=== PATIENT | female | born 1970 | race Caucasian/White ===

== ENCOUNTER 2020-06-14 10:16 | Outpatient (CLI) | payer OTHER ==
--- NOTE | 2020-06-14 10:38 | RAD ---
Left hand 2 views: 06/14/2020 COMPARISON: None HISTORY: Disability examination FINDINGS: There is an old fracture status post open reduction and internal fixation involving the dis chris left radius. There is radiocarpal joint space narrowing. No acute fracture or evidence of dislocation is seen. IMPRESSION: No acute findings.
--- NOTE | 2020-06-14 10:39 | RAD ---
2 views of the left hip: 06/14/2020 COMPARISON: None HISTORY: Disability exam FINDINGS: There is a prior fracture involving the intertrochanteric aspect of the proximal left femur treated with femoral neck screw, intramedullary sindhu, and distal interlocking screw. There is a remote medially displaced 2.4 cm fracture fragment associated with the lesser trochanter. There is mi ld superior joint space narrowing and mild lateral acetabular osteophyte formation. No acute osseous abnormality. IMPRESSION: Chronic findings as above.
== END 2020-06-14 10:17 | disposition home or self-care (01) ==
LOC: BICRAD 10:16
PROVIDERS: ATTEND Internal Medicine
DX: Z02.71 Encounter for disability determination (principal)

== ENCOUNTER 2020-07-07 16:28 | Emergency (ER) | payer SELFPAY ==
[2020-07-07 17:02] LABS: #Basophils 0.1 thou/uL (0.0-0.2); #Eosinphils 0.2 thou/uL (0.0-0.7); #Lymphocytes 1.3 thou/uL (1.20-3.40); #Monocytes 0.5 thou/uL (0.11-0.59); #Neutrophils 4.1 thou/uL (1.40-6.50); %Basophils 1.1 % (0.0-1.0); %Eosinophils 2.7 % (0.0-10.0); %Lymphocytes 21.3 % (21.0-51.0); %Monocytes 8.4 % (0.0-10.0); %Neutrophils 66.5 % (42.0-75.0); Hemoglobin 14.3 g/dL (12.0-16.0); Mean Corpuscular HGB CONC 32.8 g/dL (32.0-36.0); Mean Corpuscular Hemoglobin 29.1 pg (27.0-31.0); Mean Corpuscular Volume 88.8 fL (78.0-98.0); Mean Platelet Volume 7.9 fL (7.4-10.4); Platelet Count 250 thou/uL (130-400); RBC Distribution Width 13.1 % (11.5-14.5); Red Blood Cell (RBC) Count 4.91 mill/uL (4.20-5.40); White Blood Cell (WBC) Count 6.1 thou/uL (4.8-10.8)
[2020-07-07 17:25] LABS: ALT (SGPT) 67 U/L (8-55); AST (SGOT) 82 U/L (5-34); Albumin 3.8 g/dL (3.5-5.0); Alkaline Phosphatase 78 U/L (40-110); Anion Gap 13 mmol/L (10-20); BUN (Urea Nitrogen) 9 mg/dL (9.8-20.1); Bilirubin, Total 0.8 mg/dL (0.2-1.2); Calc. Creatinine Clearance 0 mL/min (70-130); Calcium 9.5 mg/dL (7.8-10.44); Carbon Dioxide 23 mmol/L (22-29); Chloride 106 mmol/L (98-107); Estimated GFR-MDRD 76; Globulin 3.1 g/dL (2.4-3.5); Glucose 164 mg/dL (70-105); Potassium 4.3 mmol/L (3.5-5.1); Protein, Total 6.9 g/dL (6.0-8.3); Sodium 138 mmol/L (136-145)
[2020-07-07] MEDS ORDERED: Dexamethasone 10 MG/ML VIAL ONE (18:08)
[2020-07-07] MEDS ORDERED: PROVENTIL INHALER 6.7 G (200 INHALATIONS) ONE (18:21)
--- NOTE | 2020-07-07 18:21 | RAD ---
Chest one view HISTORY: Cough and congestion. FINDINGS: Cardiac silhouette and pulmonary vasculature are unremarkable. Mediastinum is midline. Lung s are well-inflated. No lobar consolidation or evidence of pneumothorax. IMPRESSION : No abnormalities are demonstrated.
[2020-07-07] MEDS ORDERED: Albuterol 200 PUFF (6.7GM INHALER) ONE (18:52)
[2020-07-08 12:15] LABS: SARS-CoV-2 MS2 Positive; SARS-CoV-2 N Gene Negative; SARS-CoV-2 S Gene Negative; SARS-CoV-2 by NAA Not Detected (NotDetected); SARS-CoV-2 orf1ab Negative
== END 2020-07-07 19:42 | disposition home or self-care (01) ==
LOC: ERS 16:28
DX: R05 Cough (principal); R94.5 Abnormal results of liver function studies; J18.9 Pneumonia, unspecified organism; F31.9 Bipolar disorder, unspecified; F41.9 Anxiety disorder, unspecified
CPT/HCPCS: 36415; 71045; 80053; 84484; 85025; 87635; 93005; J1100; U0003

== ENCOUNTER 2020-09-04 15:04 | Emergency (ER) | payer SELFPAY ==
--- NOTE | 2020-09-04 15:44 | RAD ---
Exam: Chest one view HISTORY:Shortness of breath and loss of appetite, x2 weeks. Comparison: 07/07/2020 FINDINGS: Cardiac silhouette: Normal Aorta: Atherosclerosis Pulmonary vessels: Normal Costophrenic angles: Clear LUNGS: No masses or consolidation. Pneumothorax: None Osseous abnormalities: None IMPRESSION: No acute cardiopulmonary process. Atherosclerosis
[2020-09-04] MEDS ORDERED: Ondansetron PF 4 MG/2 ML Vial ONE (15:46)
[2020-09-04] MEDS ORDERED: methylPREDNISolone Sod Succ/PF 125 MG/2 ML VIAL ONE (15:46)
[2020-09-04 15:47] LABS: #Basophils 0.1 thou/uL (0.0-0.2); #Eosinphils 0.2 thou/uL (0.0-0.7); #Lymphocytes 1.9 thou/uL (1.20-3.40); #Monocytes 0.6 thou/uL (0.11-0.59); %Basophils 1.3 % (0.0-1.0); %Eosinophils 3.9 % (0.0-10.0); %Lymphocytes 32.7 % (21.0-51.0); %Monocytes 9.6 % (0.0-10.0); %Neutrophils 52.5 % (42.0-75.0); Hemoglobin 13.4 g/dL (12.0-16.0); Mean Corpuscular HGB CONC 33.8 g/dL (32.0-36.0); Mean Corpuscular Hemoglobin 29.3 pg (27.0-31.0); Mean Corpuscular Volume 86.8 fL (78.0-98.0); Mean Platelet Volume 7.6 fL (7.4-10.4); Platelet Count 278 thou/uL (130-400); RBC Distribution Width 12.8 % (11.5-14.5); Red Blood Cell (RBC) Count 4.57 mill/uL (4.20-5.40); White Blood Cell (WBC) Count 5.7 thou/uL (4.8-10.8)
[2020-09-04] MEDS ORDERED: Albuterol 200 PUFF (6.7GM INHALER) ONE (15:52)
[2020-09-04 16:07] LABS: ALT (SGPT) 68 U/L (8-55); AST (SGOT) 57 U/L (5-34); Albumin 3.8 g/dL (3.5-5.0); Alkaline Phosphatase 83 U/L (40-110); Anion Gap 12 mmol/L (10-20); BUN (Urea Nitrogen) 12 mg/dL (9.8-20.1); Bilirubin, Total 0.4 mg/dL (0.2-1.2); Calc. Creatinine Clearance 0 mL/min (70-130); Carbon Dioxide 26 mmol/L (22-29); Chloride 105 mmol/L (98-107); Glucose 108 mg/dL (70-105); Potassium 4.2 mmol/L (3.5-5.1); Protein, Total 6.8 g/dL (6.0-8.3); Sodium 139 mmol/L (136-145)
[2020-09-04 23:55] LABS: SARS-CoV-2 MS2 Positive; SARS-CoV-2 N Gene Negative; SARS-CoV-2 S Gene Negative; SARS-CoV-2 by NAA Not Detected (NotDetected); SARS-CoV-2 orf1ab Negative
== END 2020-09-04 17:29 | disposition home or self-care (01) ==
LOC: ERS 15:04
DX: J44.9 Chronic obstructive pulmonary disease, unspecified (principal); J18.9 Pneumonia, unspecified organism; R11.2 Nausea with vomiting, unspecified; Z86.711 Personal history of pulmonary embolism; Z86.718 Personal history of other venous thrombosis and embolism; Z79.51 Long term (current) use of inhaled steroids; Z20.822 Contact with and (suspected) exposure to COVID-19
CPT/HCPCS: 71045; 80053; 83690; 83880; 84484; 85025; 85379; 87635; 93005; 94664; 96374; 96375; J2405; J2930; U0003